=== PATIENT | male | born 2000 | race Hispanic/Latino ===

== ENCOUNTER 2021-11-19 10:10 | Emergency (ER) | payer OTHER ==
--- OUTSIDE RECORDS SUMMARY | 2021-11-19 10:14 | XMS REPORT | Continuity of Care Document ---
:2000 Author Organization [facility] t Address [address] [place] [address] Care Team Providers Name Role Phone Unavailable Unavailable Unavailable Payers Payer Name Policy Type Policy Number Effective Date Expiration Date S ource Problems This patient has no known problems. Allergies, Adverse Reactions, Alerts Allergy Allergy Status Severity Reaction(s) Onset Inactive Treating Comm ents Source Name Type Date Date Clinician No Known DA Active U 2019-0 [facility] No Known DA Active U 2019-0 [facility] 3[facility]30 [facility] Medications This patient has no known medications. Procedures This patient has no known procedures. Results Test Description Test Time Test Comments Results Result Comments Source - XR KNEE 3 V LT 2018-10-10 [place] 00:10:00 [facility] Name: SILVANA HOWARD [address] [place] [address] Phys: [place], [place] [address] : 2000 Age: 18 Sex: M Acct: [id number] Loc: [facility] PHONE #: [phone] Exam Date: 10/09/2018 Status: DEP ER FAX #: [phone] Radiology No: Unit No: [id number] Reason: Left knee pain, swelling EXAMS: CPT CODE: [id number] XR KNEE 3 [place] [id number] Fluoro Time: DAP (Gy m2): Air Kerma (mGy): EXAM: - XR KNEE 3 V LT HISTORY: Left knee pain, swelling COMPARISON: None available time of interpretation. FINDINGS: Frontal, oblique, and lateral views of the left knee are provided. No acute fracture or malalignment. No significant knee joint effusion. No soft tissue findings are apparent. IMPRESSION: No acute or degenerative findings. at 0010 Reported and signed by: ZAIDA BANEGAS M.D. CC: Kirti Zhang; [facility] CenterDotty Brady Technologist: Dontrell Palafox RT (R) Transcribed Date/Time: 10/10/2018 (0010) t.[email or web address] Orig Print D/T: S: 10/10/2018 (0013) PAGE 1 Signed Report
--- NOTE | 2021-11-19 10:33 | ER ---
Nurse's Notes [facility] Name: Cj Zurita Age: 21 yrs Sex: Male : 2000 Arrival Date: 11/19/2021 Time: 10:12 Bed Waiting Private MD: Diagnosis: Contusion of great toe without damage to nail Presentation: 11/19 10:23 Chief complaint: Patient states: Ingrown toenail x 2 weeks, had nail salon attempt to jl7 cut it out, soaked it last night and then started hurting this morning. Coronavirus screen: At this time, the client does not indicate any symptoms associated with coronavirus-19. Ebola Screen: No symptoms or risks identified at this time. Initial Sepsis Screen: Does the patient meet any 2 criteria? No. Patient's initial sepsis screen is negative. Does the patient have a suspected source of infection? No. Patient's initial sepsis screen is negative. Risk Assessment: Do you want to hurt yourself or someone else? Patient reports no desire to harm self or others. Onset of symptoms was November 05, 2021. 10:23 Method Of Arrival: Ambulatory 7 10:23 Acuity: ALFREDO 4 jl7 Triage Assessment: 10:27 General: Appears in no apparent distress. uncomfortable, Behavior is calm, cooperative, jl7 appropriate for age. Pain: Complains of pain in Right first toenail Pain currently is 10 out of 10 on a pain scale. Neuro: Level of Consciousness is awake, alert, obeys commands, Oriented to person, place, time, situation. Cardiovascular: Patient's skin is warm and dry. Respiratory: Airway is patent Respiratory effort is even, unlabored, Respiratory pattern is regular, symmetrical. Derm: Skin is pink, warm \T\ dry. Historical: - Allergies: 10:27 No Known Allergies; jl7 - Home Meds: 10:27 Vyvanse oral [Active]; jl7 - PMHx: 10:27 ADHD; jl7 - PSHx: 10:27 None; jl7 - Immunization history:: Client reports having NOT received the Covid vaccine. - Social history:: Smoking status: Patient denies any tobacco usage or history of. Screenin:25 Abuse screen: Denies threats or abuse. Denies injuries from another. Nutritional jl7 screening: No deficits noted. Tuberculosis screening: No symptoms or risk factors identified. Fall Risk None identified. Assessment: 10:25 Reassessment: MERRILL Mast in triage assessing pt. jl7 Vital Signs: 10:23 BP 131 / 98; Pulse 84; Resp 17; Temp 97.6; Pulse Ox 98% on R/A; Weight 127.01 kg; jl7 Height 5 ft. 11 in. (180.34 cm); Pain 10/10; 10:23 Body Mass Index 39.05 (127.01 kg, 180.34 cm) jl7 ED Course: 10:12 Patient arrived in ED. am2 10:22 Pro Sheppard NP is PHCP. pm1 10:22 Paula Escobar MD is Attending Physician. pm1 10:27 Triage completed. jl7 10:27 Arm band placed on right wrist. jl7 10:29 Patient has correct armband on for positive identification. jl7 10:29 No provider procedures requiring assistance completed. Patient did not have IV access jl7 during this emergency room visit. Administered Medications: No medications were administered Medication: 10: VIS not applicable for this client. jl7 Outcome: 10:33 Discharge ordered by . pm1 11:11 Discharged to home ambulatory. jl7 11:11 Condition: stable 11:11 Discharge instructions given to patient, Instructed on discharge instructions, follow up and referral plans. medication usage, Demonstrated understanding of instructions, follow-up care, medications, Prescriptions given X 2. 11:12 Patient left the ED. jl7 Signatures: Pro Sheppard NP JOB ORDER CLERK pm1 Jayson Davies RN RN jl7 Sussy Frey am2
--- NOTE | 2021-11-19 10:33 | EDPHYS ---
Physician Documentation [facility] Name: Cj Zurita Age: 21 yrs Sex: Male : 2000 Arrival Date: 11/19/2021 Time: 10:12 Bed Waiting Private MD: ED Physician Paula Escobar HPI: 11/19 10:31 This 21 yrs old Male presents to ER via Ambulatory with complaints of toe pm1 pain/swelling. 10:31 Onset: The symptoms/episode began/occurred 2 week(s) ago. Associated signs and pm1 symptoms: Pertinent negatives: fever. Modifying factors: the patient symptoms are aggravated by playing soccer and his work shoes. The patient has not experienced similar symptoms in the past. The patient has not recently seen a physician. Patient presenting to the ER with complaints of right great toe pain. Patient with onset of ingrown toenail 2 weeks ago and was seen in 1 week ago at a salon and had a pedicure. They addressed his ingrown nail at that time and he was fine for 3 to 4 days. Yesterday patient played soccer with shoes noted increasing pain and swelling to the right toe post plain and worsening with wearing his steel toe shoes this morning. Historical: - Allergies: 10:27 No Known Allergies; jl7 - Home Meds: 10:27 Vyvanse oral [Active]; jl7 - PMHx: 10:27 ADHD; jl7 - PSHx: 10:27 None; jl7 - Immunization history:: Client reports having NOT received the Covid vaccine. - Social history:: Smoking status: Patient denies any tobacco usage or history of. ROS: 10:31 Constitutional: Negative for fever, chills, and weight loss, Cardiovascular: Negative pm1 for chest pain, palpitations, and edema, Respiratory: Negative for shortness of breath, cough, wheezing, and pleuritic chest pain. 10:31 Skin: Negative for injury, rash, and discoloration, Neuro: Negative for headache, weakness, numbness, tingling, and seizure. 10:31 MS/extremity: Positive for pain, swelling, of the right first toe. medial aspect of right great toe nail, Negative for deformity. 10:31 All other systems are negative. Exam: 10:31 Constitutional: This is a well developed, well nourished patient who is awake, alert, pm1 and in no acute distress. Head/Face: Normocephalic, atraumatic. 10:31 Skin: Warm, dry with normal turgor. Normal color with no rashes, no lesions, and no evidence of cellulitis. 10:31 Cardiovascular: Exam negative for acute changes, Rate: normal, Rhythm: regular, Pulses: no pulse deficits are appreciated. 10:31 Respiratory: Exam negative for acute changes, respiratory distress, shortness of breath. 10:31 Musculoskeletal/extremity: Extremities: grossly normal except: noted in the medial aspect of right great toe, medial aspect of nail. Swelling present without any signs of abscess or cellulitis: 10:31 Neuro: Exam negative for acute changes, Orientation: is normal, Mentation: is normal, Motor: is normal, moves all fours. Vital Signs: 10:23 BP 131 / 98; Pulse 84; Resp 17; Temp 97.6; Pulse Ox 98% on R/A; Weight 127.01 kg; jl7 Height 5 ft. 11 in. (180.34 cm); Pain 10/10; 10:23 Body Mass Index 39.05 (127.01 kg, 180.34 cm) jl7 MDM: 10:31 Data reviewed: vital signs. Data interpreted: Pulse oximetry: on room air is 98 %. pm1 Interpretation: normal. Counseling: I had a detailed discussion with the patient and/or guardian regarding: the historical points, exam findings, and any diagnostic results supporting the discharge/admit diagnosis, the need for outpatient follow up, to return to the emergency department if symptoms worsen or persist or if there are any questions or concerns that arise at home. 10:33 Patient medically screened. pm1 Administered Medications: No medications were administered Disposition Summary: 11/19/21 10:33 Discharge Ordered Location: Home pm1 Problem: new pm1 Symptoms: have improved pm1 Condition: Stable pm1 Diagnosis - Contusion of great toe without damage to nail pm1 Followup: pm1 - With: Emergency Department - When: As needed - Reason: Worsening of condition Followup: pm1 - With: Private Physician - When: 2 - 3 days - Reason: Recheck today's complaints, Continuance of care, Re-evaluation by your physician Discharge Instructions: - Discharge Summary Sheet pm1 - Contusion pm1 - Ingrown Toenail pm1 Forms: - Medication Reconciliation Form pm1 - Thank You Letter pm1 - Antibiotic Education pm1 - Prescription Opioid Use pm1 Prescriptions: - Cephalexin 500 mg Oral Capsule - take 1 capsule by ORAL route every 8 hours for 10 days; 30 capsule; Refills: 0, pm1 Product Selection Permitted - Tramadol 50 mg Oral Tablet - take 1 tablet by ORAL route every 8 hours as needed; 12 tablet; Refills: 0, pm1 Product Selection Permitted Addendum: 11/20/2021 17:58 Co-signature as Attending Physician, Paula Escobar MD. m a2 Signatures: Pro Sheppard, MERRILL COMPLIANCE NURSE pm1 Jayson Davies RN RN jl7 Paula Escobar MD MD ma2
[2021-11-19 11:27] VITALS: BP 131/98; TEMP 97.6; O2SAT 98
== END 2021-11-19 11:12 | disposition home or self-care (01) ==
LOC: ER 10:10
DX: S90.111A Contusion of right great toe without damage to nail, initial encounter (principal); F90.9 Attention-deficit hyperactivity disorder, unspecified type
CPT/HCPCS: 99282